=== PATIENT | female | born 1990 | race Caucasian/White ===

== ENCOUNTER 2017-09-12 02:46 | Emergency (ER) | payer BC, OTHER ==
[~2017-09-12] VITALS: Ht 165.1 cm; Wt 81.6 kg
[~2017-09-12 02:46] MED LIST: CALCIUM500 M1; FLUOXETINE HCL10 MG PO; MULTIPLE VITAM1 EAC1 PO; VITAMIN D400 UNIT PO
--- OUTSIDE RECORDS SUMMARY | 2017-09-12 02:48 | XMS REPORT | Clinical Summary ---
Author Author [facility] Address Unknown Phone Unavailable Care Team Providers Care Lvn Lpn Name Role Phone Hank Hines MD PCP Allergies Active Allergy Reactions Severity Noted Date Comments Penicillins Other (See Comments) 05/24/2008 Current Medications Prescription Sig. Disp. Refills Start End Date Status Date VYVANSE 70 mg capsule TK 1 C PO QAM 0 07/12/19 Active 17 FLUoxetine (PROzac) 20 MG 08/04/19 Active capsule 17 ursodiol (ACTIGALL) 300 Take 1 capsule (300 mg 60 capsule 5 08/05/19 Active mg capsuleIndications: total) by mouth 2 (two) 17 Status post bariatric times a day. surgery hydrocortisone-pramoxine Use as directed for two 28.4 g 0 05/18/20 Active (ANALPRAM-HC) 1-1 % weeks. 17 rectal cream omeprazole (PriLOSEC) 40 Take 1 capsule (40 mg 30 capsule 5 08/05/19 05/18/20 Discontin MG capsuleIndications: total) by mouth daily 17 17 ued Status post bariatric before breakfast. surgery, Gastroesophageal reflux disease, esophagitis presence not specified calcium citrate-vitamin Take 1 tablet by mouth 2 60 tablet 0 08/18/19 09/18/19 D3 (CITRACAL+D) 315-200 (two) times a day for 30 17 17 mg-unit per tablet days. [employer] Brand multivitamin with Take 1 tablet by mouth 30 tablet 0 08/18/19 minerals tablet daily for 30 days. 17 17 [employer] Brand cyanocobalamin, vitamin Place 1 tablet under the 08/18/19 09/18/19 B-12, (VITAMIN B-12) tongue daily for 30 days. 17 17 1,000 mcg tablet, sublingualIndications: Status post bariatric surgery, Intestinal malabsorption, unspecified type cholecalciferol, vitamin Take 1 tablet (1,000 30 tablet 0 08/18/19 09/18/19 D3, (VITAMIN D3) 1,000 Units total) by mouth 17 17 unit tablet daily for 30 days. levoFLOXacin (LEVAQUIN) TK 1 T PO ONCE A DAY 0 04/16/20 05/18/20 Discontin 750 MG tablet 17 17 ued ondansetron (ZOFRAN) 4 MG Take 1 tablet (4 mg 20 tablet 0 04/24/20 04/24/20 Discontin tablet total) by mouth every 8 17 17 ued (eight) hours as needed for nausea or vomiting for up to 30 days. simethicone (MYLICON) 80 Chew 1 tablet (80 mg 120 tablet 0 04/24/20 04/24/20 Discontin MG chewable tablet total) every 6 (six) 17 17 ued hours for 30 days. cholecalciferol, vitamin Take 1 capsule (2,000 30 capsule 0 04/24/20 04/24/20 Discontin D3, (VITAMIN D3) 2,000 Units total) by mouth 17 17 ued unit capsule capsule daily for 30 days. simethicone (MYLICON) 80 Chew 1 tablet (80 mg 120 tablet 0 04/24/20 05/24/20 MG chewable tablet total) every 6 (six) 17 17 hours for 30 days. cholecalciferol, vitamin Take 1 capsule (2,000 30 capsule 0 04/24/20 05/24/20 D3, (VITAMIN D3) 2,000 Units total) by mouth 17 17 unit capsule capsule daily for 30 days. ondansetron (ZOFRAN) 4 MG Take 1 tablet (4 mg 20 tablet 0 04/24/20 05/24/20 tablet total) by mouth every 8 17 17 (eight) hours as needed for nausea or vomiting for up to 30 days. pantoprazole (PROTONIX) Take 1 tablet (40 mg 30 tablet 2 05/18/20 40 MG EC tablet total) by mouth daily for 17 18 90 days. polyethylene glycol Take 17 g by mouth daily 30 packet 3 05/18/20 (MIRALAX) 17 gram packet for 90 days. 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 Colonic thickening 04/21/2017 Overview: Added automatically from request for surgery [id number] Dysphagia 04/21/2017 Overview: Added automatically from request for surgery [id number] Intractable vomiting with nausea 04/21/2017 Overview: Added automatically from request for surgery [id number] Obesity, Class III, BMI 40-49.9 (morbid obesity) 08/17/2016 Encounters Date Type Specialty Care Team Description 06/16/2017 Procedure Pass Gastroenterology 05/18/2017 Office Visit Gastroenterology Sabrina Davison DO Intestinal metaplasia of gastric mucosa (Primary Dx); Constipation, unspecified constipation type; Anal fissure; Fatty liver; Abnormal LFTs; History of gastric surgery 05/06/2017 Telephone Hepatology Dhara Hernandez LVN 04/23/2017 Anesthesia General Surgery Esteban Hill MD Event 04/23/2017 Procedure Pass General Surgery 04/23/2017 Surgery General Surgery Serena Hartley MD ESOPHAGOGASTRODUODENOSCOP Y (EGD) 04/21/2017 [facility] General Surgery Raj Ta MD Colonic thickening - Encounter (Primary Dx); 04/24/2017 Dehydration; Intractable vomiting with nausea, unspecified vomiting type; Dysphagia, unspecified type 04/21/2017 Office Visit General Surgery Erica Cooley PA Dehydration (Primary Dx); Raj Ta MD Nausea and vomiting, intractability of vomiting not specified, unspecified vomiting type 10/14/2016 Orders Only General Surgery Venkat Parada RN Morbid ( severe) obesity due to excess calories (Primary Dx); Status post bariatric surgery; Intestinal malabsorption, unspecified type after 09/11/2016 Family History Medical History Relation Name Comments Heart disease Father Heart disease Maternal Grandfather Heart disease Maternal Grandmother Diabetes Mother Relation Name Status Comments Father Maternal Grandfather Maternal Grandmother Mother Social History Tobacco Use Types Packs/Day Years Used Date Never Smoker Alcohol Use Drinks/Week oz/Week Comments Yes occasional drink socially Sex Assigned at Date Recorded Not on file Last Filed Vital Signs Vital Sign Reading Time Taken Blood Pressure 122/87 05/18/2017 3:36 PM [employer] Pulse 77 05/18/2017 3:36 PM [employer] Temperature 36.6 C (97.8 F) 05/18/2017 3:36 PM [employer] Respiratory Rate 18 04/24/2017 8:16 AM CDT Oxygen Saturation 98% 04/24/2017 8:16 AM CDT Inhaled Oxygen - - Concentration Weight 81.8 kg (180 lb 6.4 oz) 05/18/2017 3:36 PM [employer] Height 165.1 cm (5' 5") 05/18/2017 3:36 PM [employer]UAL [employer] Body Mass Index 30.02 05/18/2017 3:36 PM [employer]UAL LAT[employer] O[employer] Plan of Treatment Health Maintenance Due Date Last Done Comments CHLAMYDIA SCREENING 2008 PAP SMEAR 2013 INFLUENZA VACCINE 02/01/2017 06/04/2015, 03/16/2013, 02/27/2009 Implants Implanted Type Area Air Pollution Inspector Device Expiration Model / Identifier Date Serial / Lot Drain Wound Hbls Round Radopaq Surgical N/A: N/A 2229 / [employer]car Hazel White 0.18in 15fr - Implants; / [id number] Expanders; Implanted: 08/17/2016 (Quantity not Extenders; on file) Surgical Wires Procedures Procedure Name Priority Date/Time Associated Diagnosis Comments COLONOSCOPY 04/23/2017 Colonic thickening 9:00 AM CDT ESOPHAGOGASTRODUODENOSCOP 04/23/2017 Colonic thickening Y (EGD) 9:00 AM CDT after 09/11/2016 Results * Estimated GFR (04/24/2017 4:00 AM) Only the most recent of 4 results within the time period is included. Component Value Ref Range GFR Non Af Amer >90 mL/min/1.73 m2 GFR Af Amer >90 mL/min/1.73 m2 Comment: Chronic kidney disease: <60 mL/min/1.73m2 Kidney failure: <15 mL/min/1.73m2 The estimated GFR is calculated from the IDMS-traceable Modification of Diet in Renal Disease Equation. The accuracy of the calculation is poor when the creatinine is normal. Calculated values >90 mL/min/1.73m2 are not reported. This equation has not been validated in children (<18 years), women, the elderly (>70 years), or ethnic groups other than Caucasians and Americans. Specimen Performing Laboratory Plasma specimen [facility] DEPARTMENT OF PATHOLOGY AND GENOMIC MEDICINE [address] [place] [id number] * CBC with platelet and differential (04/24/2017 4:00 AM) Only the most recent of 3 results within the time period is included. Component Value Ref Range WBC 9.55 4.50 - 11.00 k/uL RBC 3.80 (L) 4.20 - 5.50 m/uL HGB 13.3 12.0 - 16.0 g/dL HCT 37.6 37.0 - 47.0 % MCV 98.9 82.0 - 100.0 fL MCH 35.0 (H) 27.0 - 34.0 pg MCHC 35.4 31.0 - 37.0 g/dL RDW - SD 53.2 37.0 - 55.0 fL MPV 9.8 8.8 - 13.2 fL Platelet count 174 150 - 400 k/uL Nucleated RBC 0.00 /100 WBC Neutrophils 66.9 39.0 - 69.0 % Lymphocytes 26.4 25.0 - 45.0 % Monocytes 4.7 0.0 - 10.0 % Eosinophils 1.4 0.0 - 5.0 % Basophils 0.3 0.0 - 1.0 % Immature granulocytes 0.3Comment: "Immature granulocytes" 0.0 - 1.0 % (promyelocytes, myelocytes, metamyelocytes) Specimen Performing Laboratory Blood [facility] DEPARTMENT OF PATHOLOGY AND GENOMIC MEDICINE [address] [place] [address] * Comprehensive metabolic panel (04/24/2017 4:00 AM) Only the most recent of 4 results within the time period is included. Component Value Ref Range Sodium 143 135 - 148 mEq/L Potassium 3.6 3.5 - 5.0 mEq/L Chloride 107 98 - 112 mEq/L CO2 24 24 - 31 mEq/L Anion gap 12 7 - 15 mEq/L Comment: Starting from October , anion gap calculation no longer incorporates potassium. Please note the change. BUN 5 (L) 6 - 20 mg/dL Creatinine 0.5 0.5 - 0.9 mg/dL Glucose 83 65 - 99 mg/dL Calcium 8.5 8.3 - 10.2 mg/dL Protein 5.9 (L) 6.3 - 8.3 g/dL Comment: [place] 4.6-7.0 g/dL 1 week 4.4-7.6 g/dL 7 months-1year 5.1-7.3 g/dL 1-2 years 5.6-7.5 g/dL >3 years 6.0-8.0 g/dL 18-150 6.3-8.3 g/dL Albumin 3.2 (L) 3.5 - 5.0 g/dL A/G ratio 1.2 0.7 - 3.8 Alkaline phosphatase 55 35 - 104 U/L AST 80 (H) 10 - 35 U/L ALT 116 (H) 5 - 50 U/L Total bilirubin 0.7 0.0 - 1.2 mg/dL Specimen Performing Laboratory Plasma specimen [facility] [place] [address] * Surgical pathology request (04/23/2017 9:38 AM) Component Value Ref Range Surgical pathology report See link below for PDF Lab Report Specimen Performing Laboratory [facility] [place] [address] * Salmonella/shigella culture (04/22/2017 11:50 PM) Component Value Ref Range Salmonella/shigella No Aeromonas isolated culture isolate Comment: Specimen Information Specimen Source: Stool Specimen Site: Nonpreserved Specimen Performing Laboratory [facility] PATH[facility] [place] [address] * Gastrointestinal panel (04/22/2017 11:50 PM) Component Value Ref Range Gastrointestinal panel Positive for Enteropathogenic E coli Negative for all other pathogens tested: Negative for Salmonella Negative for Campylobacter Negative for Shigella Negative for Shiga-like toxin-producing E coli Negative for Plesiomonas shigelloides Negative for Yersinia enterocolitica Negative for Vibrio species Negative for Clostridium difficile (Toxin A/B) Negative for Cryptosporidium Negative for Giardia lamblia Negative for Cyclospora cayeteanensis Negative for Entamoeba histolytica Negative for Adenovirus F 40/41 Negative for Astrovirus Negative for Norovirus GI/GII Negative for Rotavirus A Negative for Sapovirus Negative for E coli 0157 This real-time PCR assay detects the presence of nucleic acids (RNA or DNA) for the gastrointestinal pathogens listed. A result of "Not-detected" does not exclude the possibility of the presence of one or more pathogens at concentrations less than the detectable limits of the assay.:* (A) Comment: Specimen Information Specimen Source: Stool Specimen Site: Nonpreserved Specimen Performing Laboratory [facility] DEPARTMENT OF PATHOLOGY AND [facility] [facility] [address] [place] [address] * POC glucose (04/22/2017 5:42 PM) Only the most recent of 3 results within the time period is included. Component Value Ref Range POC glucose 105 (H) 65 - 99 mg/dL Comment: No Action Needed Meter ID: [id number] [employer] Counterperson: Sg Valencia Specimen Performing Laboratory [facility] [place]MENT [place] [address] * Sedimentation rate (04/22/2017 1:00 PM) Component Value Ref Range Sedimentation rate 4 0 - 20 mm/hr Specimen Performing Laboratory Blood [facility] [place] [address] * Anti smooth muscle Ab titer (04/22/2017 11:55 AM) Component Value Ref Range Anti smooth muscle Ab 1:20 (A) Not-Detected titer Specimen Performing Laboratory [facility] [place] [address] * Anti smooth muscle Ab screen (04/22/2017 11:55 AM) Component Value Ref Range Anti smooth muscle Ab Detected (A) Not-Detected screen Specimen Performing Laboratory Blood [facility] [place] [address] * Anti mitochondria screen (04/22/2017 11:55 AM) Component Value Ref Range Anti mitochondria screen Not Detected Not-Detected Specimen Performing Laboratory Blood [facility] [place] [address] * Hepatitis acute panel (04/22/2017 11:55 AM) Component Value Ref Range Hepatitis A IgM Non-reactive Non-reactive Hepatitis B core IgM Non-reactive Non-reactive Hepatitis B surface Ag Non-reactive Non-reactive Hepatitis C Ab Non-reactive Non-reactive Specimen Performing Laboratory Serum [facility] [place] [address] * C-reactive protein (04/22/2017 11:55 AM) Component Value Ref Range CRP <0.30 0.00 - 0.50 mg/dL Specimen Performing Laboratory Plasma specimen [facility] DEPARTMENT OF PATHOLOGY AND [facility] MEDICINE [address] [place] [address] * Immunoglobulin A (04/22/2017 11:55 AM) Component Value Ref Range IgA 153 70 - 400 mg/dL Specimen Performing Laboratory Plasma specimen [facility] DEPARTMENT OF PATHOLOGY AND GENOMIC MEDICINE [address] [place] [address] * Immunoglobulin M (04/22/2017 11:55 AM) Component Value Ref Range IgM 39 33 - 255 mg/dL Specimen Performing Laboratory Plasma specimen [facility] DEPARTMENT OF PATHOLOGY AND [address] [address] * Immunoglobulin G (04/22/2017 11:55 AM) Component Value Ref Range IgG 554 (L) 700 - 1,600 mg/dL Specimen Performing Laboratory Plasma specimen [facility] DEPARTMENT OF PATHOLOGY AND GENOMIC MEDICINE [address] [place] [address] * FL Upper GI (04/22/2017 9:30 AM) Specimen Performing Laboratory [facility] [address] [place] [address] Narrative EXAMINATION:FL UPPER GI CLINICAL HISTORY:Vomiting, N V following sleeve gastrectomy COMPARISON:None. Fluoroscopic time: 0.9 minutes; number of spot film images: 12 FINDINGS: There is normal oropharyngeal coordination with no evidence of aspiration or diverticulum.The esophagus demonstrated generally normal peristaltic activity.There is no evidence of hiatal hernia. The patient is previously undergone a sleeve gastrectomy type procedure with typical irregular contour to the stomach.There is no evidence of ulceration or inflammatory change.Contrast material passed into the more normal- appearing antrum and out the duodenal bulb and C-loop without difficulty. IMPRESSION: Normal postoperative appearance after sleeve gastrectomy. [facility]-[id number] Procedure Note Interface, Radiology Results Incoming - 04/22/2017 11:16 AM CDT EXAMINATION: FL UPPER GI CLINICAL HISTORY: Vomiting, N V following sleeve gastrectomy COMPARISON: None. Fluoroscopic time: 0.9 minutes; number of spot film images: 12 FINDINGS: There is normal oropharyngeal coordination with no evidence of aspiration or diverticulum. The esophagus demonstrated generally normal peristaltic activity. There is no evidence of hiatal hernia. The patient is previously undergone a sleeve gastrectomy type procedure with typical irregular contour to the stomach. There is no evidence of ulceration or inflammatory change. Contrast material passed into the more normal- appearing antrum and out the duodenal bulb and C-loop without difficulty. IMPRESSION: Normal postoperative appearance after sleeve gastrectomy. [facility]-[id number] * US Gallbladder (04/22/2017 7:50 AM) Specimen [facility] [address] [place] [address] Narrative EXAMINATION:US GALLBLADDER CLINICAL HISTORY:elevated LFT s p lap sleeve gastrectomy COMPARISON:None. TECHNIQUE:Sonographic evaluation of the gallbladder. FINDINGS: GALLBLADDER: Multiple stones without wall thickening or pericholecystic fluid. BILIARY: Common bile duct measures 4mm, within normal limits. VASCULATURE:Portal vein is patent with hepatopedal flow. OTHER: No ascites in the right upper quadrant. Liver is echogenic compatible with fatty infiltration. IMPRESSION: Cholelithiasis without evidence of acute cholecystitis. Fatty liver. [facility]-[id number] Procedure Note [facility], Radiology Results Incoming - 04/22/2017 8:09 AM CDT EXAMINATION: US GALLBLADDER CLINICAL HISTORY: elevated LFT s p lap sleeve gastrectomy COMPARISON: None. TECHNIQUE: Sonographic evaluation of the gallbladder. FINDINGS: GALLBLADDER: Multiple stones without wall thickening or pericholecystic fluid. BILIARY: Common bile duct measures 4 mm, within normal limits. VASCULATURE: Portal vein is patent with hepatopedal flow. OTHER: No ascites in the right upper quadrant. Liver is echogenic compatible with fatty infiltration. IMPRESSION: Cholelithiasis without evidence of acute cholecystitis. Fatty liver. [facility]-[id number] * Bilirubin direct (04/22/2017 5:35 AM) Only the most recent of 2 results within the time period is included. Component Value Ref Range Bilirubin direct 0.5 (H) 0.0 - 0.3 mg/dL Specimen Performing Laboratory Plasma specimen [facility] DEPARTMENT OF PATHOLOGY AND GENOMIC MEDICINE [address] [place] [address] * Copper level, serum (04/21/2017 3:02 PM) Component Value Ref Range Copper 119 80 - 155 ug/dL Comment: INTERPRETIVE INFORMATION: Copper, Serum or Plasma Serum copper may be elevated with infection, inflammation, stress, and copper supplementation. In females, elevated copper may also be caused by oral contraceptives and (concentrations may be elevated up to 3 times normal during the third trimester). Serum copper may be reduced by use of corticosteroids and zinc and by malnutrition or malabsorption. See Compliance Statement B at [email or web address] Performed by [facility], [address] [place], [place] [id number] www.[email or web address], Kevin Capellan MD - Lab. Director Specimen Performing Laboratory Blood [facility] [address] [place] [address] * Zinc level, serum (04/21/2017 3:02 PM) Component Value Ref Range Zinc 80 60 - 120 ug/dL Comment: INTERPRETIVE INFORMATION: Zinc, Serum or Plasma Circulating zinc concentrations are dependent on albumin status and are depressed with malnutrition. Zinc may also be lowered with infection, inflammation, stress, oral contraceptives, and . Zinc may be elevated with zinc supplementation or fasting. Elevated zinc concentrations may interfere with copper absorption. Test developed and characteristics determined by [facility]. See Compliance Statement B: [employer]/CS Performed by [facility], [address] [place] [address] www.[email or web address], Kevin Capellan MD - Lab. Director Specimen Performing Laboratory Blood [facility] [address] [place] [address] * Vitamin A level, plasma or serum (04/21/2017 3:02 PM) Component Value Ref Range Vitamin A (retinol) 0.40 0.30 - 1.20 mg/L Retinyl palmitate 0.07 0.00 - 0.10 mg/L Vitamin A interpretation Normal Comment: Test developed and characteristics determined by [facility]. See Compliance Statement B: [employer] Performed by [facility], [address] [place] [id number] www.[email or web address], Kevin Capellan MD - Lab. Director Specimen Performing Laboratory Plasma specimen [place] [id number] * Selenium, serum (04/21/2017 3:02 PM) Component Value Ref Range Selenium, serum 160 23 - 190 ug/L Comment: TEST INFORMATION: Selenium, Serum or Plasma Serum selenium levels can be used in the determination of deficiency or toxicity. Plasma and serum contains 75 percent of the selenium measured in whole blood and reflects recent dietary intake. Selenium deficiency can occur endemically or as a result of sustained TPN or restricted diets and has been associated with cardiomyopathy and may exacerbate hypothyroidism. Selenium toxicity is relatively rare. Excess intake of selenium can result in symptoms consistent with selenosis and include gastrointestinal upset, hair loss, white blotchy nails, and mild nerve damage. Test developed and characteristics determined by [facility]. See Compliance Statement B: [employer] Performed by [facility], [address] [place] [id number] www.[email or web address], Kevin Capellan MD - Lab. Director Specimen Performing Laboratory Blood [address] [address] * Vitamin K level, serum (04/21/2017 3:02 PM) Component Value Ref Range Vitamin K 6.18 (H) 0.22 - 4.88 nmol/L Comment: Elevated vitamin K concentration may be associated with increased lipid concentration. INTERPRETIVE INFORMATION: Vitamin K1, Serum Vitamin K concentration is reported as nanomoles per liter (nmol/L). To convert concentration to nanograms per milliliter (ng/mL), multiply the result by 0.45. See Compliance Statement B: [employer] Performed by [facility], [address] [place] [id number] www.[email or web address], Kevin Capellan MD - Lab. Director Specimen Performing Laboratory Serum [facility] [address] [place] [id number] * Chromium, serum (04/21/2017 3:02 PM) Component Value Ref Range Chromium, serum <1.0 <=5.0 ug/L Comment: INTERPRETATION INFORMATION: Chromium, Serum Serum chromium is the preferred specimen type for evaluating metal ion release from ynnby-zo-luhrf joint arthroplasty. Serum chromium levels may be increased in asymptomatic patients with piimx-vc-dzcca prosthetics and should be considered in the context of the overall clinical scenario. The form of chromium greatly influences distribution. Trivalent chromium resides in the plasma and is usually not of clinical importance. Hexavalent chromium is considered highly toxic; however, chromium serum levels should not be used to assess toxic exposures to hexavalent chromium as it is predominately taken up and retained by red blood cells. Symptoms associated with chromium toxicity vary based on route of exposure and dose, and may include dermatitis, impairment of pulmonary function, gastroenteritis, hepatic necrosis, bleeding, and acute tubular necrosis. Test developed and characteristics determined by [facility]. See Compliance Statement B: [employer] Performed by [facility], [address] [place] [id number] www.[email or web address], Kevin Capellan MD - Lab. Director Specimen Performing Laboratory Serum [facility] [address] [address] * Vitamin D 25 hydroxy level (04/21/2017 3:02 PM) Component Value Ref Range Vitamin D, 25-hydroxy 21.1 (L) 30.0 - 150.0 ng/mL Comment: This assay reports the sum of 25-hydroxy vitamin D3 and 25-hydroxy vitamin D2. Reference range: 0-17 years: Deficiency: less than 20ng/mL Optimum level: greater than or equal to 20 ng/mL. 18 years and older: Deficiency: less than 20ng/mL Insufficiency: 20-29 ng/mL Optimum Level: 30-80 ng/mL The assay reportable range is 3.4 155.9 ng/mL. Levels higher than 150 ng/mL may be associated with toxicity. If toxicity is clinically suspected and the reported result is >155.9 ng/mL,contact lab for alternative methods to obtain a definitive level. If separate quantitation of 25-hydroxy vitamin D3 and 25-hydroxy vitamin D2 is needed, please contact lab for alternative methods. Specimen Performing Laboratory Blood [facility] DEPARTMENT OF PATHOLOGY AND GENOMIC MEDICINE [address] [place] [address] * CBC hemogram (04/21/2017 3:02 PM) Component Value Ref Range WBC 7.07 4.50 - 11.00 k/uL RBC 4.61 4.20 - 5.50 m/uL HGB 16.0 12.0 - 16.0 g/dL HCT 45.5 37.0 - 47.0 % MCV 98.7 82.0 - 100.0 fL MCH 34.7 (H) 27.0 - 34.0 pg MCHC 35.2 31.0 - 37.0 g/dL RDW - SD 55.4 (H) 37.0 - 55.0 fL MPV 9.5 8.8 - 13.2 fL Platelet count 194 150 - 400 k/uL Nucleated RBC 0.00 /100 WBC Specimen Performing Laboratory Blood [facility] DEPARTMENT OF PATHOLOGY AND GENOMIC MEDICINE [address] [place] [address] * Vitamin E level, plasma or serum (04/21/2017 3:02 PM) Component Value Ref Range Alpha-tocopherol mg/L 7.4 5.5 - 18.0 mg/L Comment: Test developed and characteristics determined by [facility]. See Compliance Statement B: [email or web address] Gamma-tocopherol mg/L 1.0 0.0 - 6.0 mg/L Comment: Performed by [facility], [address] [place] [id number] [email or web address], Kevin Capellan MD - Lab. Director Specimen Performing Laboratory Plasma specimen [address] [address] * Thyroid stimulating hormone (04/21/2017 3:02 PM) Component Value Ref Range TSH 2.08 0.27 - 4.20 uIU/mL Specimen Performing Laboratory Plasma specimen [facility] DEPARTMENT OF PATHOLOGY AND [facility] MEDICINE [address] [place] [address] * Vitamin B6 level, plasma (04/21/2017 3:02 PM) Component Value Ref Range Vitamin B6 20.5 20.0 - 125.0 nmol/L Comment: INTERPRETIVE INFORMATION: Vitamin B6 (Pyridoxal 5-Phosphate) Pyridoxal 5'-phosphate measured in a specimen collected following an 8-hour or overnight fast accurately indicates vitamin B6 nutritional status. Non-fasting specimen concentration reflects recent vitamin intake. Test developed and characteristics determined by [facility]. See Compliance Statement B: [employer]/ Performed by [facility], [address] [place] [id number] [email or web address], Kevin Capellan MD - Lab. Director Specimen Performing Laboratory Plasma specimen [address] [address] * Prealbumin level (04/21/2017 3:02 PM) Component Value Ref Range Prealbumin 24 16 - 32 mg/dL Specimen Performing Laboratory Serum [facility] DEPARTMENT OF PATHOLOGY AND [facility] MEDICINE [address] [place] [id number] * Parathyroid hormone (04/21/2017 3:02 PM) Component Value Ref Range PTH 99 (H) 15 - 65 pg/mL Specimen Performing Laboratory Blood [facility] DEPARTMENT OF PATHOLOGY AND GENOMIC MEDICINE [address] [place] [address] * Iron level (04/21/2017 3:02 PM) Component Value Ref Range Iron level 238 (H) 37 - 145 ug/dL Specimen Performing Laboratory Plasma specimen [facility] DEPARTMENT OF PATHOLOGY AND GENOMIC MEDICINE [address] [place], [place] [id number] * Folate level (04/21/2017 3:02 PM) Component Value Ref Range Folate <2.0 (L) 4.8 - 24.2 ng/mL Specimen Performing Laboratory Serum [facility] DEPARTMENT OF PATHOLOGY AND GENOMIC MEDICINE [address] [place] [address] * Vitamin B12 level (04/21/2017 3:02 PM) Component Value Ref Range Vitamin B12 466 211 - 946 pg/mL Comment: Significant overlap exists between normal and deficiency states. However, most patients with deficiencies will have Serum B12 <200 pg/mL. Specimen Performing Laboratory Serum [facility] DEPARTMENT OF PATHOLOGY AND GENOMIC MEDICINE [address] [place] [address] * Lipid panel (04/21/2017 3:02 PM) Component Value Ref Range Cholesterol 136 <200 mg/dL Triglycerides 95 <150 mg/dL HDL cholesterol 36 (L) >40 mg/dL LDL cholesterol 83Comment: Result obtained by direct LDL <100 mg/dL measurement Lipid panel SeeBelow interpretation Comment: Total Cholesterol (mg/dL) <200 Desirable 200-239 Borderline-high >=240 High Triglycerides (mg/dL) <150 Normal 150-199 Borderline-high 200-499 High >=500 Very high HDL Cholesterol (mg/dL) <40 Low (male) <40 Low (female) LDL Cholesterol (mg/dL) <100 Optimal 100-129 Near or above optimal 130-159 Borderline-high 160-189 High >=190 Very high Risk Catergories that modify LDL goals. Risk Catergories LDL goal (mg/dL) CHD and CHD risk equivalent <100 (10-year risk >20%) Multiple (2+) risk factors <130 (10-year risk=<20%) 0-1 risk factors <160 (<10-year risk) Defining levels of lipids in metabolic syndrome Triglycerides >=150 mg/dL HDL Cholesterol Men <40 mg/dL Women <40 mg/dL Non-HDL cholesterol is a second target for therapy in persons with high triglycerides (>=200 mg/dL) Specimen Performing Laboratory Plasma specimen [facility] DEPARTMENT OF PATHOLOGY AND GENOMIC MEDICINE [address] [place] [address] after 09/11/2016
[2017-09-12] MEDS ORDERED: VYVANSE20 MG (03:16)
[2017-09-12] MEDS ORDERED: ZOLOFT50 MG (03:16)
[2017-09-12] MEDS ORDERED: TETANUS/DIPHTHERIA TOX ADULT 0.5 ML SYR IM ONE (04:15)
[2017-09-12 07:28] VITALS: BP 99/63
== END 2017-09-12 07:25 | disposition home or self-care (01) ==
LOC: FSED 02:46
DX: S01.81XA Laceration without foreign body of other part of head, initial encounter (principal); W18.09XA Striking against other object with subsequent fall, initial encounter; Y92.000 Kitchen of unspecified non-institutional (private) residence as the place of occurrence of the external cause; F10.120 Alcohol abuse with intoxication, uncomplicated; Z98.84 Bariatric surgery status
CPT/HCPCS: 90714; 99283

== ENCOUNTER 2019-09-15 11:52 | Observation (INO) | payer BC, OTHER ==
[~2019-09-15] VITALS: Ht 165.1 cm; Wt 101.3 kg
[~2019-09-15 11:52] MED LIST changes: +VYVANSE20 MG; +ZOLOFT50 MG
[2019-09-15 12:48] LABS: BASOPHILS % 0.3 % (0.0-1.0); EOSINOPHILS # (AUTO) 0.1 (0.0-0.4); EOSINOPHILS % 1.3 % (0.0-6.0); HEMATOCRIT 42.9 % (34.2-44.1); HEMOGLOBIN 14.3 g/dL (12.0-16.0); LYMPHOCYTES # (AUTO) 1.1 (1.0-3.2); MEAN CORPUSCULAR HGB CONC 33.3 g/dL (31-35); MONOCYTES # (AUTO) 0.5 (0.2-0.8); MONOCYTES % 4.9 % (4.4-11.3); NEUTROPHILS # (AUTO) 8.4 (2.1-6.9); PLATELET COUNT 242 x10e3/uL (140-360); RED BLOOD COUNT 4.47 x10e6/uL (3.6-5.1)
[2019-09-15 12:50] LABS: INR 0.81; PROTHROMBIN TIME 11.7 seconds (11.9-14.5)
[2019-09-15 12:51] LABS: PARTIAL THROMBOPLASTIN TIME 30.5 seconds (23.8-35.5)
[2019-09-15] MEDS ORDERED: KETOROLAC TROMETHAMINE 30 MG/ML VIAL IV STA (12:52)
[2019-09-15 12:54] LABS: CLARITY,URINE CLOUDY (CLEAR)
[2019-09-15 12:55] LABS: BILIRUBIN,URINE LARGE (NEGATIVE); KETONES,URINE 1+ (NEGATIVE); LEUKOCYTE ESTERASE ,URINE NEGATIVE (NEGATIVE); NITRITE,URINE NEGATIVE (NEGATIVE); PROTEIN,URINE DIPSTICK 2+ (NEGATIVE); URINE UROBILINOGEN 1 mg/dL (0.2 - 1)
[2019-09-15 12:56] LABS: COLOR,URINE AMBER (YELLOW)
[2019-09-15 12:57] LABS: ALANINE AMINOTRANSFERASE 475 IU/L (0-55); ALBUMIN/GLOBULIN RATIO 1.1 (0.8-2.0); ALKALINE PHOSPHATASE 197 IU/L (40-150); ANION GAP 9.7 mmol/L (8-16); BLOOD UREA NITROGEN 13 mg/dL (7-26); BUN/CREATININE RATIO 17 (6-25); CALCIUM 9.7 mg/dL (8.4-10.2); CARBON DIOXIDE 24 mmol/L (22-29); CHLORIDE 106 mmol/L (98-107); CREATININE, SERUM 0.75 mg/dL (0.57-1.11); EST GLOMERULAR FILTRATION RATE > 60 ML/MIN (60-); GLUCOSE 86 mg/dL (74-118); POTASSIUM 3.7 mmol/L (3.5-5.1); SODIUM 136 mmol/L (136-145)
[2019-09-15] MEDS ORDERED: SODIUM CHLORIDE 0.9% 1000ML 1,000 ML IV ONE (13:00)
[2019-09-15 13:06] LABS: BACTERIA,URINE MODERATE /HPF; CALCIUM OXALATE CRYSTALS,UR MANY (FEW); EPITHELIAL CELLS,URINE MODERATE /LPF; RBC,URINE 0-5 /HPF (0-5); WBC,URINE (MAN) 0-5 /HPF (0-5)
[2019-09-15] MEDS ORDERED: LEVALBUTEROL HCL SOLN NEBU 0.63 MG/3 ML NEB ONE (13:09)
[2019-09-15] MEDS ORDERED: DEXAMETHASONE SOD PHOS INJ 4 MG/ML VIAL ONE (14:00)
[2019-09-15] MEDS ORDERED: ROCURONIUM BROMIDE 10 MG/ML 5ML VIAL ONE (14:00)
[2019-09-15] MEDS ORDERED: PROPOFOL IV EMULSION 10 MG/ML 20 ML VIAL ONE (14:00)
[2019-09-15] MEDS ORDERED: KETOROLAC TROMETHAMINE 30 MG/ML VIAL ONE (14:00)
[2019-09-15] MEDS ORDERED: SEVOFLURANE INHAL SOLN 250 ML PEN BTL ONE (14:00)
[2019-09-15] MEDS ORDERED: ONDANSETRON HCL INJ 2MG/ML 2ML 2 MG/ML VIAL ONE (14:00)
[2019-09-15] MEDS ORDERED: LIDOCAINE HCL 2% LOCAL INJ 5 ML SDV VIAL INJ ONE (14:00)
--- NOTE | 2019-09-15 15:16 | Diagnostic Imaging Report ---
EXAM: Right Upper Quadrant Ultrasound INDICATION: ^right upper abd pain COMPARISON: None. TECHNIQUE: Transverse and longitudinal images of the right upper abdomen were obtained. FINDINGS: Liver: Size: 14.8 cm in the right midclavicular line, normal Appearance: Normal echogenicity, smooth contour Mass: No focal masses Gallbladder: Stones/Sludge: Innumerable stones noted in the gallbladder lumen producing wall echo shadow complex sign Wall: 0.3 cm Appearance: No wall thickening, pericholecystic fluid or hydrops. Sonographic Collado's Sign: Negative Bile Ducts: Intrahepatic Ducts: No dilatation Extrahepatic Ducts: Common bile duct measures ... cm, no dilatation Pancreas: Visualized portions of the pancreatic neck and proximal body are normal. Kidneys: Length: Right 10.4 cm Echogenicity: Normal Collecting System: No hydronephrosis Stone: None Cyst/Mass: None Vessels: Aorta: Visualized portions are normal Inferior Vena Cava: Visualized portions are normal Main Portal Vein: 0.9 cm, normal size with hepatopetal flow. Free Fluid: No ascites or pleural effusion IMPRESSION: 1. Cholelithiasis without evidence of cholecystitis. Signed by: Dr. Tung Mueller M.D. on 09/15/2019 3:12 PM
[2019-09-15] MEDS ORDERED: ONDANSETRON HCL INJ 2MG/ML 2ML 2 MG/ML VIAL IV PRN (15:30)
[2019-09-15] MEDS ORDERED: MORPHINE SULFATE INJ 4 MG/ML INJ 1ML IV PRN (15:30)
[2019-09-15] MEDS ORDERED: PIPER-TAZ 3.375 GM / NS 50ML IV SCH (15:30)
--- OUTSIDE RECORDS SUMMARY | 2019-09-15 15:57 | XMS REPORT ---
Author Author [facility] Address Unknown Phone Unavailable Care Team Providers Care Parking Enforcement Officer Name Role Phone Ricardo LANGLEY Unavailable Unavailable Problems This patient has no known problems. Allergies, Adverse Reactions, Alerts This patient has no known allergies or adverse reactions. Medications This patient has no known medications. Results Test Description Test Time Test Comments Text Results Atomic Results Result Comments GALLBLADDER 2019-09-15 15:11:00 [place] [address] Patient Name: KOURTNEY LOPEZ MR #: [id number] : 1990 Age/Sex: 28/F Req #: [id number] Adm Physician: Ordered by: YOUSIF ROJAS MATERIALS MGMT TECH Report #: [id number] Location: ER Room/Bed: Procedure: [id number] US/US GALLBLADDER Exam Date: 09/15/19 Exam Time: 1416 REPORT STATUS: Signed EXAM: Right Upper Quadrant Ultrasound INDICATION: right upper abd pain COMPARISON: None. TECHNIQUE: Transverse and longitudinal images of the right upper abdomen were obtained. FINDINGS: Liver: Size: 14.8 cm in the right midclavicular line, normal Appearance: Normal echogenicity, smooth contour Mass: No focal masses Gallbladder: Stones/Sludge: Innumerable stones noted in the gallbladder lumen producing wall echo shadow complex sign Wall: 0.3 cm Appearance: No wall thickening, pericholecystic fluid or hydrops. Sonographic Collado's Sign: Negative Bile Ducts: Intrahepatic Ducts: No dilatation Extrahepatic Ducts: Common bile duct measures ... cm, no dilatation Pancreas: Visualized portions of the pancreatic neck and proximal body are normal. Kidneys: Length: Right 10.4 cm Echogenicity: Normal Collecting System: No hydronephrosis Stone: None Cyst/Mass: None Vessels: Aorta: Visualized portions are normal Inferior Vena Cava: Visualized portions are normal Main Portal Vein: 0.9 cm, normal size with hepatopetal flow. Free Fluid: No ascites or pleural effusion IMPRESSION: 1. Cholelithiasis without evidence of cholecystitis. Signed by: Dr. Johnny Mueller M.D. on 09/15/2019 3:12 PM Dictated By: JOHNNY MUELLER MD 11 Transcribed By: JEIMY on 09/15/191511 COPY TO: YOUSIF ROJAS NP
[2019-09-15] MEDS ORDERED: CEFTRIAXONE SOD 1 GM/NS 50 ML 50 ML IV SCH (17:15)
[2019-09-15 17:58] VITALS: BP 123/79
[2019-09-15] MEDS ORDERED: METRONIDAZOLE 500MG/NS 100ML 100 ML IV SCH (18:00)
[2019-09-15] MEDS ORDERED: PIPER-TAZ 3.375 GM 50 ML IV SCH (18:00)
--- NOTE | 2019-09-15 18:30 | NUR ---
Received patient from ER to room 296, patient is in stable condition. Mother at bedside. Oriented to room and policies. Call light within reach. Bed in the lowest position.
--- NOTE | 2019-09-15 18:37 | Diagnostic Imaging Report ---
EXAMINATION: MRI Abdomen without contrast. TECHNIQUE: Axial T1 nonfat sat in and out of phase, axial T2 fat sat, coronal T2 nonfat sat, axial DWI and ADC MR images of the abdomen were obtained. No intravenous gadolinium was administered. Heavily T2-weighted MRCP images were also performed, including thick and thin slab MRCP ASSETTCLINICAL AND 3-D RECONSTRUCTIONS. HISTORY:Cholelithiasis, right upper quadrant pain COMPARISON: Right upper quadrant ultrasound 09/15/2019 FINDINGS:LACK OF GADOLINIUM DECREASES SENSITIVITY FOR DETECTION OF INTRA-ABDOMINAL PATHOLOGY. LOWER THORAX: Unremarkable. LIVER: The hepatic contour is normal.. No hepatic signal abnormality. No focal hepatic lesions. BILIARY: No intrahepatic biliary ductal dilation. There is mild dilation of the common bile duct, which measures approximately 8 to 9 mm at the shelby hepatis. No intraluminal filling defects. Normal luminal contour and tapering to the ampulla.. Innumerable 3-4 mm gallstones are noted in the gallbladder lumen.. No wall thickening or pericholecystic fluid. PANCREAS: No mass or ductal dilatation. SPLEEN: Mild splenomegaly, measuring 13.3 cm in AP diameter.. ADRENALS: No nodules. KIDNEYS: No hydronephrosis or cystic or solid mass in the imaged portion of the kidneys. PERITONEUM / RETROPERITONEUM: No upper abdominal free fluid. Partially visualized T2 hyperintense rounded well-circumscribed 3.5 cm left adnexal structure, which may represent a follicular cyst GI TRACT: Visualized bowel shows no dilation or obstruction. LYMPH NODES: No upper abdominal lymphadenopathy. VESSELS: Normal flow voids are identified. . BONES AND SOFT TISSUES: No abnormal bone marrow signal. No soft tissue abnormalities. IMPRESSION: 1. Cholelithiasis without evidence of cholecystitis. 2. No evidence of choledocholithiasis. 3. Mild dilation of the common bile duct. No intrahepatic biliary ductal dilation. This may be secondary to recent passage of stone. 4. Mild splenomegaly. Signed by: Dr. Tung Mueller M.D. on 09/15/2019 6:34 PM
[2019-09-15 18:45] VITALS: BP 123/79
[2019-09-15 18:50] VITALS: BP 123/79
[2019-09-15] MEDS: SODIUM CHLORIDE 0.9% 1000ML 1,000 ML IV SCH ×2 (18:58→23:33)
--- NOTE | 2019-09-15 19:40 | NUR ---
Report given to oncoming nurse. Patient is resting in bed. No acute distress noted. Mother at bedside. Call light within reach. Bed in the lowest position.
[2019-09-15 20:00] VITALS: BP 119/68
[2019-09-15] MEDS: CEFTRIAXONE SOD 1 GM/NS 50 ML 50 ML IV SCH (20:36)
[2019-09-15 22:49] VITALS: BP 119/68
[2019-09-15] MEDS: METRONIDAZOLE 500MG/NS 100ML 100 ML IV SCH (23:33)
[2019-09-16] VITALS: BP 115/63
[2019-09-16] MEDS: METRONIDAZOLE 500MG/NS 100ML 100 ML IV SCH ×3 (06:06→17:46)
[2019-09-16 06:25] LABS: BASOPHILS % 0.3 % (0.0-1.0); EOSINOPHILS # (AUTO) 0.2 (0.0-0.4); EOSINOPHILS % 2.7 % (0.0-6.0); HEMATOCRIT 38.8 % (34.2-44.1); HEMOGLOBIN 12.6 g/dL (12.0-16.0); LYMPHOCYTES # (AUTO) 1.8 (1.0-3.2); LYMPHOCYTES % 30.4 % (18.0-39.1); MEAN CORPUSCULAR HEMOGLOBIN 31.2 pg (28-32); MEAN CORPUSCULAR HGB CONC 32.5 g/dL (31-35); MONOCYTES # (AUTO) 0.4 (0.2-0.8); MONOCYTES % 6.2 % (4.4-11.3); NEUTROPHILS # (AUTO) 3.6 (2.1-6.9); NEUTROPHILS % 60.1 % (38.7-80.0); PLATELET COUNT 191 x10e3/uL (140-360); RED BLOOD COUNT 4.04 x10e6/uL (3.6-5.1); RED CELL DISTRIBUTION WIDTH 13.1 % (11.7-14.4)
--- NOTE | 2019-09-16 06:41 | NUR ---
Received bedside shift report from off going nurse. Patient is resting in bed. No acute distress noted. Call light within reach. Bed in the lowest position.
[2019-09-16 06:45] LABS: ALANINE AMINOTRANSFERASE 366 IU/L (0-55); ALBUMIN 3.3 g/dL (3.5-5.0); ALBUMIN/GLOBULIN RATIO 1.1 (0.8-2.0); ALKALINE PHOSPHATASE 160 IU/L (40-150); BLOOD UREA NITROGEN 9 mg/dL (7-26); BUN/CREATININE RATIO 14 (6-25); CALCIUM 8.7 mg/dL (8.4-10.2); CARBON DIOXIDE 24 mmol/L (22-29); CHLORIDE 109 mmol/L (98-107); CREATININE, SERUM 0.63 mg/dL (0.57-1.11); EST GLOMERULAR FILTRATION RATE > 60 ML/MIN (60-); GLUCOSE 81 mg/dL (74-118); LIPASE 21 U/L (8-78); SODIUM 137 mmol/L (136-145)
[2019-09-16 07:00] LABS: MAGNESIUM 1.6 MG/DL (1.3-2.1); PHOSPHORUS 2.9 MG/DL (2.3-4.7)
[2019-09-16] MEDS: CEFTRIAXONE SOD 1 GM/NS 50 ML 50 ML IV SCH ×2 (07:15→19:46)
[2019-09-16] MEDS: FAMOTIDINE 20 MG/2 ML VIAL IV SCH ×2 (08:09→17:46)
[2019-09-16 08:18] VITALS: BP 110/61
--- NOTE | 2019-09-16 09:25 | Consultation ---
DATE OF CONSULTATION: 09/16/2019 HISTORY OF PRESENT ILLNESS: The patient is a 28-year-old female, who presents with complaints of epigastric right upper quadrant abdominal pain radiating to her back since she has had this for about a week. Says the pain is less now. Pain, however, was more severe yesterday. She came to the emergency room, evaluation revealed gallstones with elevated bilirubin and dilated bile ducts. She has had MRCP done, which did not reveal any common bile duct stones, but ultrasound reveals gallstones. PAST MEDICAL HISTORY: Significant for previous gastric sleeve resection. MEDICATIONS: She has no current medications. ALLERGIES: SHE HAS ALLERGY TO PENICILLIN. PAST SURGICAL HISTORY: Gastric sleeve resection. FAMILY HISTORY: Noncontributory. SOCIAL HISTORY: The patient does not smoke cigarettes. Occasionally drinks alcohol. REVIEW OF SYSTEMS: As stated above, otherwise was negative. PHYSICAL EXAMINATION: GENERAL: The patient is awake and alert, in no distress. VITAL SIGNS: Normal. HEENT: Sclerae nonicteric. NECK: Has no masses. LUNGS: Equal breath sounds are clear bilaterally. CARDIAC: Regular rate and rhythm with no murmur. ABDOMEN: Mildly tender in the epigastrium. There is no mass, no organomegaly. EXTREMITIES: Have no edema. NEUROLOGIC: Grossly intact. LABORATORY DATA: The bilirubin on admission was 7, repeat is 2 and MRCP did not reveal any common bile duct stones. ASSESSMENT: A 28-year-old female with symptoms of acute on chronic cholecystitis, cholelithiasis, probable biliary colic. She will benefit from cholecystectomy. She planned to schedule for today. Procedure was explained to the patient including risks, benefits, and alternatives. She understands. She has had the opportunity to ask questions. She is aware of the possible need for open surgery. Thank you for asking me to see Ms. Rosales. MD VANGIE Bean/NATALIE /[id number]
[2019-09-16 09:49] VITALS: BP 110/61
[2019-09-16] MEDS ORDERED: BUPIVACAINE HCL 0.5% INJ 30 ML VIAL INJ ONE (12:01)
[2019-09-16 12:14] VITALS: BP 111/64
--- NOTE | 2019-09-16 12:32 | NUR ---
Patient off unit for procedure.
[2019-09-16] MEDS ORDERED: SUGAMMADEX SODIUM 200 MG/2 ML VIAL IV ONE (14:06)
[2019-09-16] MEDS ORDERED: METOCLOPRAMIDE HCL 10 MG/2ML VIAL ONE (14:36)
[2019-09-16] MEDS ORDERED: ONDANSETRON HCL INJ 2MG/ML 2ML 2 MG/ML VIAL ONE (14:36)
--- NOTE | 2019-09-16 14:53 | NUR ---
Patient back to unit at this time. She is in stable condition. 4 trochar sites noted.
[2019-09-16] MEDS: ONDANSETRON HCL INJ 2MG/ML 2ML 2 MG/ML VIAL IV PRN ×2 (15:15→23:54)
[2019-09-16] MEDS: SODIUM CHLORIDE 0.9% 1000ML 1,000 ML IV SCH ×2 (16:00→19:51)
[2019-09-16 16:43] VITALS: BP 116/65
[2019-09-16] MEDS ORDERED: FENTANYL CITRATE/PF 100MCG/2 ML INJ ONE (17:34)
[2019-09-16] MEDS ORDERED: MIDAZOLAM HCL 2 MG/2 ML VIAL ONE (17:34)
[2019-09-16] MEDS: HYDROCODONE/APAP 5MG-325MG TAB PO PRN ×2 (18:17→22:28)
[2019-09-16] MEDS ORDERED: ACETAMINOPHEN 325 MG TAB PO PRN (18:30)
[2019-09-16] MEDS ORDERED: HYDRALAZINE HCL 20 MG/ML VIAL IV PRN (18:30)
--- NOTE | 2019-09-16 19:08 | NUR ---
Bedside shift report given to oncoming nurse. Patient is resting in bed. No acute distress noted. Family at bedside. Call light within reach. Bed in the lowest position.
--- NOTE | 2019-09-16 19:21 | Operative Report ---
DATE OF PROCEDURE: 09/16/2019 SURGEON: Donaldo Gacria MD PREOPERATIVE DIAGNOSES: [id number] cholecystitis and cholelithiasis. POSTOPERATIVE DIAGNOSES: [id number] cholecystitis and cholelithiasis. PROCEDURES: Diagnostic laparoscopy, laparoscopic cholecystectomy. POLICE RESERVES COMMANDER: None. ANESTHESIA: General endotracheal. INDICATIONS AND FINDINGS: The patient is a 28-year-old female, who complains of severe epigastric right upper quadrant abdominal pain, radiating to her back. Workup revealed gallstones. Preop MRCP was negative for common bile duct stones. Surgery based on the gallbladder was distended, packed full of stones. Cystic duct was about 3 mm in diameter. Common bile duct was about 7 mm in diameter. Liver, stomach, and lower abdomen all appeared normal. TECHNIQUE: After adequate general endotracheal anesthesia, the patient in supine position, the abdomen was prepped and draped in sterile fashion with ChloraPrep solution. Skin in the umbilicus was infiltrated with 0.5% Marcaine. Incision was made in the umbilicus. Abdominal wall was elevated and Veress needle was introduced. Pneumoperitoneum was then created. A 10 mm trocar and cannula were then passed through the umbilical wound. Laparoscopic camera was introduced. Initial laparoscopy revealed the gallbladder to be distended. Liver, stomach, and lower abdomen all appeared normal. A 10 mm trocar and cannula were placed in the epigastrium and two 5 mm trocars and cannulas were placed in right upper quadrant. These were placed under direct vision. Fundus of the gallbladder was grasped, retracted superiorly. Neck of the gallbladder was grasped, retracted laterally. Peritoneum over the neck of the gallbladder was incised. The gallbladder cystic duct junction was dissected free. Cystic artery was also dissected free. The neck of the gallbladder completely dissected free. Cystic artery was divided between hemoclips close to the gallbladder. Cystic duct was also divided between hemoclips with three clips being left on the common bile duct side. The gallbladder was dissected free from the liver using scissors and electrocautery. Once it was entirely free, it was placed into an Endopouch and brought out through the epigastric cannula. There were multiple small stones. Gallbladder bed was inspected for hemostasis, which was seem to be adequate. It was irrigated with saline. All fluid aspirated, inspected once again for hemostasis, which was seem to be adequate. Instruments and cannulas were then removed. Pneumoperitoneum was evacuated. Wounds were then closed. Fascia in the umbilical and epigastric wound closed with 0 Vicryl. Skin to all wounds closed with tika. Sterile dressings applied to each wound. The patient tolerated the procedure well. Estimated blood loss was 5 mL. There were no complications. All counts were correct. The patient was taken to the recovery room in satisfactory condition. MD VANGIE Bean/MODL /[id number] cc: Basilio Bang MD
[2019-09-16] MEDS: MORPHINE SULFATE 2 MG/ML SYR 1ML IV PRN ×2 (19:48→23:53)
[2019-09-16 20:00] VITALS: BP 132/81
[2019-09-17] VITALS (9 sets, daily range): BP systolic 96–121; BP diastolic 54–73
[2019-09-17 02:53] LABS: BASOPHILS % 0.2 % (0.0-1.0); EOSINOPHILS % 0.1 % (0.0-6.0); HEMATOCRIT 36.5 % (34.2-44.1); HEMOGLOBIN 12.2 g/dL (12.0-16.0); LYMPHOCYTES # (AUTO) 0.8 (1.0-3.2); LYMPHOCYTES % 6.1 % (18.0-39.1); MEAN CORPUSCULAR HEMOGLOBIN 31.7 pg (28-32); MEAN CORPUSCULAR HGB CONC 33.4 g/dL (31-35); MEAN CORPUSCULAR VOLUME 94.8 fL (81-99); MONOCYTES # (AUTO) 0.4 (0.2-0.8); MONOCYTES % 2.8 % (4.4-11.3); NEUTROPHILS # (AUTO) 11.4 (2.1-6.9); NEUTROPHILS % 90.3 % (38.7-80.0); PLATELET COUNT 226 x10e3/uL (140-360); RED BLOOD COUNT 3.85 x10e6/uL (3.6-5.1); RED CELL DISTRIBUTION WIDTH 12.8 % (11.7-14.4)
[2019-09-17 03:29] LABS: ALANINE AMINOTRANSFERASE 372 IU/L (0-55); ALBUMIN 3.4 g/dL (3.5-5.0); ALBUMIN/GLOBULIN RATIO 1.1 (0.8-2.0); ALKALINE PHOSPHATASE 140 IU/L (40-150); ANION GAP 8.1 mmol/L (8-16); BLOOD UREA NITROGEN 7 mg/dL (7-26); BUN/CREATININE RATIO 11 (6-25); CALCIUM 8.8 mg/dL (8.4-10.2); CARBON DIOXIDE 24 mmol/L (22-29); CHLORIDE 107 mmol/L (98-107); CREATININE, SERUM 0.62 mg/dL (0.57-1.11); EST GLOMERULAR FILTRATION RATE > 60 ML/MIN (60-); GLUCOSE 101 mg/dL (74-118); MAGNESIUM 1.6 MG/DL (1.3-2.1); POTASSIUM 4.1 mmol/L (3.5-5.1); SODIUM 135 mmol/L (136-145)
[2019-09-17] MEDS: METRONIDAZOLE 500MG/NS 100ML 100 ML IV SCH ×3 (06:01→12:00)
[2019-09-17] MEDS: SODIUM CHLORIDE 0.9% 1000ML 1,000 ML IV SCH (06:03)
[2019-09-17] MEDS: CEFTRIAXONE SOD 1 GM/NS 50 ML 50 ML IV SCH (07:14)
[2019-09-17] MEDS: HYDROCODONE/APAP 5MG-325MG TAB PO PRN ×2 (07:15→11:25)
--- NOTE | 2019-09-17 07:15 | NUR ---
PATIENT IN BED RESTING WITH NO DISTRESS. 4 TROCAR SITES TO ABDOMEN WITH DRESSING INTACT. C/O PAIN AND WAS MEDICATED. IN BED WITH CALL LIGHT AT REACH.
[2019-09-17] MEDS: FAMOTIDINE 20 MG/2 ML VIAL IV SCH (09:15)
--- NOTE | 2019-09-17 11:48 | NUR ---
PATIENT C/O PAIN AND WAS MEDICATED ORDERED. IN BED WITH CALL LIGHT AT REACH.
[2019-09-17] MEDS ORDERED: Hydrocodone/Apap 5MG-325MG PO (12:12)
--- NOTE | 2019-09-17 13:30 | NUR ---
PATIENT DISCHARGED HOME. DISCHARGE INSTRUCTIONS, PRESCRIPTIONS, AND FOLLOW UP GIVEN TO PATIENT, SHE VERBALIZED UNDERSTANDING. IV TO RIGHT AC REMOVED WITH TIP INTACT. ALL PERSONAL ITEMS TAKEN WITH PATIENT. REFUSED WHEEL CHAIR, BUT WAS ACCOMPANIED TO FRONT LOBBY BY HOSPITAL STAFF IN STABLE CONDITION.
--- NOTE | 2019-09-17 22:57 | Discharge Summary ---
ADMISSION DIAGNOSES: Acute cholelithiasis without cholecystitis, depression, obesity with a BMI of 36.27. DISCHARGE DIAGNOSES: Acute cholelithiasis without cholecystitis, depression, obesity with a BMI of 36.27, status post laparoscopic cholecystectomy. HISTORY: Depression. SURGICAL HISTORY: Gastric resection. FAMILY HISTORY: The patient's mother had diabetes. The patient's father had an CA, CAD, and CABG. SOCIAL HISTORY: The patient admits to occasional alcohol use and marijuana use. HOSPITAL COURSE: A 28-year-old female admitted with abdominal pain and pelvic pain for 2 days and was diagnosed with a UTI, given Bactrim, naproxen, and also took Tylenol. The upper abdominal pain radiated to her back. At first, the pain was 8 to 9, but got worse when she ate. She had some vomiting, so she came to the ER. On admission, ultrasound of the gallbladder showed cholelithiasis without evidence of cholecystitis. She then had an MRCP, which showed cholelithiasis without evidence of cholecystitis and no evidence of choledocholithiasis, mild dilation of the common bile duct. The patient's liver enzymes trended down after the patient had a laparoscopic cholecystectomy per Surgery recommendation. After the surgery, the patient is tolerating diet and pain is controlled. Urine culture was negative. The patient will discharge home with new prescription for Cassoday per Surgery recommendation. The patient is cleared to follow up for workup at the office on per Surgery recommendation. The patient and family understand discharge instructions and agreed to plan. Vital signs stable, the patient afebrile. Dictated by Sakshi Bains NP MD MIRTA Mitchell/MODL /[id number]
== END 2019-09-17 13:38 | disposition home or self-care (01) ==
LOC: ER 11:52 → ERHOLD 15:30 → INTOOBSV 15:30 → MED/SURG3 17:54
PROVIDERS: ADMIT Internal Medicine; ATTEND Internal Medicine
DX: K80.80 Other cholelithiasis without obstruction (principal); Z88.0 Allergy status to penicillin; Z98.84 Bariatric surgery status; E66.01 Morbid (severe) obesity due to excess calories; Z68.36 Body mass index [BMI] 36.0-36.9, adult; F32.9 Major depressive disorder, single episode, unspecified
CPT/HCPCS: 36415 ×3; 47562; 74181; 76705; 80053 ×3; 81001; 81025; 83036; 83690 ×2; 83735 ×2; 84100; 84443; 85025 ×3; 85610; 85730; 87086; 88304; 99284; G0378 ×3; J0696 ×3; J1100; J1885; J2001; J2250; J2270 ×3; J2405 ×2; J2704; J2765; J3010; J7030 ×3